=== PATIENT | male | born 1945 | race Caucasian/White ===

== ENCOUNTER 2017-01-12 08:00 | Inpatient (IN) | payer BC, OTHER ==
--- NOTE | 2017-01-11 10:38 | HP ---
[facility] - Chief Complaint Chief Complaint: right hip pain - Past Medical History Allergies/Adverse Reactions: Allergies Allergy/AdvReac Type Severity Reaction Status Date / Time No Known Allergies Allergy Verified 01/05/17 12:50 - Current Medications Current Medications: Home Medications Medication Instructions Recorded Ferrous Sulfate [Feosol] 325 mg PO DAILY 01/05/17 Tramadol HCl [Ultram] 50 mg PO BID PRN 01/05/17 [facility] Physical Exam - Physical Examination General Appearance: Well Nourished, Well Developed, Alert & Oriented x3 ENT: Clear Lung: Normal air movement Heart: Regular rate & rhythm Extremities: Other (right hip - +ttp, decr rom, nvi xrays show severe hip djd) Neurological: Intact, Alert, Oriented [facility] Impression/Plan - Impression/Plan Impression: right hip djd Operative Procedure: right matthew thr Date to be Performed: 01/12/17
[2017-01-12] MEDS ORDERED: TRANEXAMIC ACID 1000 MG/10 ML VIAL IVPUSH ONE (08:21)
[2017-01-12] MEDS ORDERED: CEFAZOLIN 2 GM in DEXTROSE 5%-WATER - 50 ML IVPB ONE (08:21)
[2017-01-12] MEDS ORDERED: oxyCODONE HCL 10 MG SUSTAINED ACTING TABLET PO ONE (08:21)
[2017-01-12] MEDS ORDERED: GABAPENTIN 300 MG CAPSULE (FP) PO ONE (08:21)
[2017-01-12] MEDS ORDERED: CELECOXIB 200 MG CAPSULE PO ONE (08:21)
[2017-01-12 08:47] VITALS: BMI 26.4
[2017-01-12] MEDS ORDERED: MIDAZOLAM HCL 2 MG/2 ML SINGLE DOSE VIAL ONE (09:03)
[2017-01-12] MEDS ORDERED: DEXAMETHASONE SOD PHOSPHATE/PF 10 MG/ML SDV ONE (09:03)
[2017-01-12] MEDS ORDERED: LIDOCAINE 1% P/F 10 MG/ML VIAL ONE (09:03)
[2017-01-12] MEDS ORDERED: BUPIVACAINE HCL/PF (5 MG/ML) 30 ML VIAL IJ ONE (09:03)
[2017-01-12] MEDS ORDERED: BUPIVACAINE HCL/PF 0.5% (5MG/ML) 10 ML VIAL ONE (10:21)
[2017-01-12] MEDS ORDERED: PROPOFOL 20 ML ONE ×2 (10:47)
[2017-01-12] MEDS ORDERED: VANCOMYCIN 1,000 MG VIAL (RESTRICTED TO ID ONLY) IVPB ONE (11:03)
[2017-01-12] MEDS ORDERED: MAGNESIUM HYDROX 2400MG/30ML ORAL SUSPENSION 30 ML CUP PO PRN (12:03)
[2017-01-12] MEDS ORDERED: ONDANSETRON 4 MG/2 ML VIAL IVPB PRN (12:03)
--- NOTE | 2017-01-12 12:05 | OP ---
Operative Note - Note: Operative Date: 01/12/17 (maxine) Pre-Operative Diagnosis: right hip djd Operation: right matthew thr Post-Operative Diagnosis: Same as Pre-op Surgeon: Melecio Solorzano Bed And Breakfast Cook: Eddy Villanueva Anesthesiologist/DIRECT CARE STAFFER: Donell Patino Anesthesia: Spinal, Local Specimens Removed: femoral head Estimated Blood Loss (mls): 150 Operative Report Dictated: Yes
[2017-01-12] MEDS ORDERED: oxyCODONE HCL 5 MG TABLET PO PRN (12:14)
[2017-01-12] MEDS ORDERED: LACTATED RINGERS SOLUTION 1,000 ML IV SCH (12:15)
[2017-01-12] MEDS ORDERED: MAG HYDROX/AL HYDROX/SIMETH 30 ML UNIT-DOSE CUP PO PRN (12:23)
[2017-01-12] MEDS ORDERED: ONDANSETRON 4 MG/2 ML VIAL IVPUSH PRN (12:24)
[2017-01-12] MEDS ORDERED: PROMETHAZINE HCL 25 MG/1 ML VIAL IVPUSH PRN (12:27)
--- NOTE | 2017-01-12 12:31 | SPEC ---
DATE OF OPERATION: 01/12/2017 PREOPERATIVE DIAGNOSIS: Degenerative joint disease, right hip. POSTOPERATIVE DIAGNOSIS: Degenerative joint disease, right hip. PROCEDURE: Right total hip replacement with robotic arm navigation assistance (MAKOplasty). SURGEON: Eri Solorzano MD TELEGRAPH PRINTER MECHANIC: JL Carpio ANESTHESIA: Spinal and regional. CLOSURE: ANITA components with a No. 56 Press-Fit Tritanium cup with an Accolade 2 No. 8 femoral stem and a +5 36-mm metallic head; No. 1 Vicryl, fascia; 0 and 2-0, subcutaneous; 3-0 Monocryl, subcuticular; skin glue for skin. ESTIMATED BLOOD LOSS: Negligible. COMPLICATIONS: None. CONDITION: To recovery room in stable condition. DESCRIPTION OF OPERATIVE PROCEDURE: The patient was taken to the operating room. Spinal anesthesia as well as regional was administered by the anesthesiologist. The IV Kefzol and TXA were administered prophylactically prior to the case. The patient was placed in the lateral decubitus position with all prominences well padded. An EKG pad was secured to the inferior pole of the patella for limb length calculations intraoperatively. The right hip area was prepped and draped in the usual sterile fashion. A 12.0- to 15.0-cm curved longitudinal incision over the posterolateral aspect of the greater trochanter was made. Hemostasis was achieved with Bovie cautery. Sharp dissection was carried down to the level of the fascia. The fascia was opened the entire length of the incision, spreading the gluteus carlie fibers in the direction of their origin. A Charnley retractor was placed in this layer, and care was taken to be far away from the sciatic nerve. The short external rotators were detached off the insertion of the greater trochanter and peeled off the capsule. A posterior capsulectomy was then performed. A checkpoint was malleted into the greater trochanter. Three small stab incisions were done on the iliac crest. Through these stab incisions, threaded guide pins were drilled into the iliac crest. These pins were fastened to the Navigation array. The checkpoint on the greater trochanter and the EKG pad on the inferior pole of the patella were used to measure preoperative limb length and offset. The hip was then dislocated. The hip was osteotomized at the appropriate level as directed by the preoperative template. Anterior and posterior retractors were placed around the acetabulum. Circumferential labrum was excised. A checkpoint was malleted into the acetabulum superiorly. The acetabulum was then registered with the Navigation device with multiple sites within the acetabulum and around the rim of the acetabulum. It was then confirmed popping the blue bubbles, confirming ideal position and confirmation of adequate registration with the Navigation device. Using a 48 reamer, which was decided preoperatively on the preoperative template, the robotic arm was brought into the field and was used to ream the acetabulum down to the appropriate depth with the appropriate orientation and inversion applied. After reaming, a good hemispherical bleeding surface was encountered in the acetabulum. A ANITA shell of the appropriate size was then malleted into place achieving excellent fit. Confirmation of the appropriate orientation and inversion was confirmed using the probe and assuring that the acetabular cup was placed in the ideal position as templated preoperatively. A real liner was then clipped into place with a 10-degree lip in the posterior-superior quadrant. Anterior and posterior osteophytes were removed using osteotome. Next, our attention was directed to the femur. The proximal femur was opened with a box chisel, rat-tail, anchovy and serial reamers. This was done until the appropriate reamer achieved good fit and fill of the proximal femur. A trial reduction with the appropriate neck and head, as again measured from our preoperative template, was performed. Limb lengths were confirmed both visually and using the Navigation device, again measuring the inferior pole of the patella and the checkpoint of the greater trochanter. This confirmed ideal position of the femoral component, lengths and offset. The trial components were removed. The real component was malleted into place. The head was cold-welded to the Charnley and the hip was reduced. Again, the hip was found to have equal limb lengths as described previously. The hip was also taken through a range of motion and found to be stable in external rotation and extension, was stable in marked flexion, stable in adduction and internal rotation, and had a positive hang test and negative telescoping. The hip was irrigated with copious amounts of irrigation. Hemostasis was achieved. Vancomycin powder was sprinkled into the joint. A 2nd dose of TXA was administered. The fascia was closed with No. 1 Vicryl interrupted suture, 0 and 2-0 for subcutaneous, and 3-0 Monocryl subcuticular for skin with skin glue. This was followed by an Aquacel dressing. The patient was flipped into the supine position. Bilateral SCDs and an abduction pillow were applied. X-rays showed good position of the components. The patient was awakened from anesthesia and transferred to the recovery room in stable condition. ERI SOLORZANO M.D. [id number]
[2017-01-12] MEDS: ACETAMINOPHEN 325 MG TABLET (FP) PO SCH ×3 (13:05→20:00)
[2017-01-12] MEDS: LACTATED RINGERS SOLUTION 1,000 ML IV SCH (13:17)
[2017-01-12] MEDS: CEFAZOLIN 2 GM/D5W 50 ML IVPB SCH (17:39)
[2017-01-12] MEDS: oxyCODONE HCL 5 MG TABLET PO PRN (18:20)
[2017-01-12] MEDS: SENNOSIDES/DOCUSATE COMBO (SENNA PLUS) TABLET (UD) PO SCH (21:08)
[2017-01-12] MEDS: oxyCODONE HCL 10 MG SUSTAINED ACTING TABLET PO SCH (21:15)
[2017-01-13] MEDS: CEFAZOLIN 2 GM/D5W 50 ML IVPB SCH (01:15)
[2017-01-13] MEDS: ACETAMINOPHEN 325 MG TABLET (FP) PO SCH ×4 (02:33→19:28)
[2017-01-13] MEDS: oxyCODONE HCL 5 MG TABLET PO PRN ×5 (02:34→23:51)
[2017-01-13] MEDS: ASPIRIN 325 MG TABLET PO SCH (07:53)
--- NOTE | 2017-01-13 08:02 | PN ---
Progress Note (short form) - Note Progress Note: Ortho Pt seen and examined s/p right matthew thr pod #1 Selected Entries 01/13/17 05:58 Temperature 98.3 F Pulse Rate 73 Respiratory 18 Rate Blood Pressure 136/70 Laboratory Tests 01/13/17 07:30 WBC Pending Hgb Pending Hct Pending Plt Count Pending dressing c/d/i, calf soft, nt nvi a/p PT hip precautions dvt ppx pain control d/c home tomorrow if stable
[2017-01-13 08:53] LABS: MCH 30.3 pg (25.7-33.7); MEAN CELL VOLUME 89.3 fl (80-96); MEAN PLT VOLUME 7.5 fl (7.5-11.1); PLATELET COUNT 262 K/MM3 (134-434); RDW 12.2 % (11.9-15.9); WHITE BLOOD COUNT 10.1 K/mm3 (4.0-10.8)
[2017-01-13] MEDS: FERROUS SO4 325 MG TABLET (FP) PO SCH (09:14)
[2017-01-13] MEDS: oxyCODONE HCL 10 MG SUSTAINED ACTING TABLET PO SCH ×2 (09:16→21:53)
[2017-01-13] MEDS: PANTOPRAZOLE 40 MG TABLET (FP) PO SCH (09:17)
--- NOTE | 2017-01-13 09:40 | PN ---
Progress Note (short form) - Note Progress Note: ANESTHESIOLOGY: 71 YO male POD #1 s/p R LILIAN. Patient doing well. OOB in walker on the way to PT. Pain well controlled. Tolerating PO. Encouraged IS.
[2017-01-13] MEDS ORDERED: PATIENT'S OWN MEDICATION (NON-FORMULARY) (Ferrous Sulfate [Feosol] 325 MG) PO SCH (10:00)
[2017-01-13] MEDS: SENNOSIDES/DOCUSATE COMBO (SENNA PLUS) TABLET (UD) PO SCH ×2 (10:13→21:53)
[2017-01-13] MEDS: MULTIVITAMINS (DAILY MVI) TABLET (FP) PO SCH (10:13)
[2017-01-13] MEDS: LACTATED RINGERS SOLUTION 1,000 ML IV SCH (12:58)
[2017-01-13 22:54] VITALS: BP 118/56; PULSE 87; TEMP 97.9
[2017-01-14] MEDS: ACETAMINOPHEN 325 MG TABLET (FP) PO SCH ×2 (01:25→08:05)
[2017-01-14] MEDS: oxyCODONE HCL 5 MG TABLET PO PRN ×2 (02:32→06:34)
[2017-01-14 07:53] LABS: MCH 30.5 pg (25.7-33.7); MEAN CELL VOLUME 89.8 fl (80-96); MEAN PLT VOLUME 7.1 fl (7.5-11.1); PLATELET COUNT 226 K/MM3 (134-434); RDW 12.7 % (11.9-15.9); WHITE BLOOD COUNT 8.6 K/mm3 (4.0-10.8)
[2017-01-14] MEDS: ASPIRIN 325 MG TABLET PO SCH (08:05)
--- NOTE | 2017-01-14 08:14 | PN ---
Progress Note (short form) - Note Progress Note: Ortho Pt seen and examined s/p right matthew thr pod #2 Selected Entries 01/13/17 22:53 Temperature 97.9 F Pulse Rate 87 Respiratory 18 Rate Blood Pressure 118/56 Laboratory Tests 01/14/17 07:30 WBC 8.6 Hgb 12.1 Hct 35.6 Plt Count 226 dressing c/d/i, calf soft, nt nvi a/p PT hip precautions dvt ppx pain control d/c home today f/u in 1 week
--- NOTE | 2017-01-14 08:15 | DS ---
Physical Examination Vital Signs: Vital Signs Temperature 97.9 F 01/13/17 22:53 Pulse Rate 87 01/13/17 22:53 Respiratory Rate 18 01/13/17 22:53 Blood Pressure 118/56 01/13/17 22:53 O2 Sat by Pulse Oximetry (%) 96 01/13/17 22:53 Labs: CBC, BMP 01/14/17 07:30 Discharge Summary Reason For Visit: OSTEOARTHRITIS Procedures: Principal: s/p right matthew thr Hospital Course: admitted for elective right matthew thr, uneventful post-op, stable for d/c Condition: Good - Instructions Diet, Activity, Other Instructions: Post-op Instructions-Total Hip Replacement Call the office for a follow-up appointment in 1 week - [phone] Aspirin 325mg daily for 6 weeks. Pain medication was sent into your pharmacy. Apply Graduated Compression Stockings (TEDs) to both lower extremities- remove daily for hygiene ONLY Apply Sequential Compression Device (SCDs) to both Lower extremities remove for PT and hygiene ONLY Apply cold packs to affected area for 15 minutes every 2 hours. Physical Therapist will come to your home for the first 5 days. You will be set up with outpatient PT at your first post-operative visit. Patient may ambulate as tolerated-encourage self care (at least every 2-3 hours while awake) with walker or cane Maintain Aquacel (waterproof) dressing to operative wound (will be removed by surgeon at first office visit) Shower with Aquacel dressing in place-if Aquacel integrity compromised, remove and apply dry sterile dressing and notify Orthopedist. DO NOT SHOWER unless Orthopedists approves without Aquacel dressing CONTACT THE OFFICE FOR ANY CHANGE IN YOUR CONDITION (for example-fever greater than 102 degrees,excessive bleeding from operative site, purulent drainage, severe swelling or pain) GO TO THE EMERGENCY ROOM IF THERE IS A MEDICAL EMERGENCY Hip Precautions: * Keep a rolled towel under affected heel while in bed or chair (to keep knee in extension) * Dependent upon approach: * Posterior - do not cross legs; do not sit on low chairs or toilets. * If you have any questions, please do not hesitate to call the office - . Referrals: Melecio Solorzano MD [Staff Physician] - Disposition: VNS/HOME HEALTH CARE - Home Medications Comprehensive Discharge Medication List: Ambulatory Orders Ferrous Sulfate [Feosol] 325 mg PO DAILY 01/05/17 Tramadol HCl [Ultram -] 50 mg PO BID PRN 01/05/17 Aspirin [ASA -] 325 mg PO DAILY@0800 tablet 01/12/17 Oxycodone HCl/Acetaminophen [Percocet 5-325 mg Tablet -] 1 - 2 tab PO Q6H #50 tab MDD 8 01/12/17
[2017-01-14] MEDS: PANTOPRAZOLE 40 MG TABLET (FP) PO SCH (09:17)
[2017-01-14] MEDS: FERROUS SO4 325 MG TABLET (FP) PO SCH (09:17)
[2017-01-14] MEDS: MULTIVITAMINS (DAILY MVI) TABLET (FP) PO SCH (09:17)
[2017-01-14] MEDS: SENNOSIDES/DOCUSATE COMBO (SENNA PLUS) TABLET (UD) PO SCH (09:18)
[2017-01-14] MEDS: oxyCODONE HCL 10 MG SUSTAINED ACTING TABLET PO SCH (09:18)
--- NOTE | 2017-01-19 10:34 | PATH ---
Surgical Pathology Report Patient Name: URMILA BEASLEY Med. Rec. #: [id number] /Age/Gender: 1945 (Age: 71) / M Account: [id number] Location: [facility] MED-SURG Taken: 01/12/2017 Received: 01/12/2017 Reported: 01/19/2017 Physicians: Melecio Solorzano M.D. Specimen(s) Received RIGHT FEMORAL HEAD Clinical History Osteoarthritis of right hip Final Diagnosis FEMORAL HEAD, RIGHT, TOTAL HIP PLACEMENT: DEGENERATIVE JOINT DISEASE. Electronically Signed Alycia Cobos M.D. Gross Description Received in formalin, labeled "right femoral head," is a 4.8 x 4.8 x 4.3 cm. femoral head with a 1.4 cm in length portion of femoral neck attached. The margin of resection is smooth. There is a 4.8 cm in greatest dimension area of eburnation present. The remaining articular surface is lai-yellow and diffusely granular. The underlying trabecular bone is yellow and hard. A exhibit display representative section is submitted in one cassette, following decalcification. 01/14/201701/14/2017
== END 2017-01-14 11:25 | disposition home health service (06) | DRG 470 ==
LOC: FM/S 08:12
PROVIDERS: ADMIT Orthopaedic Surgery; ATTEND Orthopaedic Surgery
PROC: 8E0W0CZ Robotic Assisted Procedure of Trunk Region, Open Approach (ICD-10-PCS; 2017-01-12)
PROC: 0SR90JA Replacement of Right Hip Joint with Synthetic Substitute, Uncemented, Open Approach (ICD-10-PCS; principal; 2017-01-12 10:21)
DX: M16.11 Unilateral primary osteoarthritis, right hip (principal)
CPT/HCPCS: 36415; 73502-TC-RT; 85027; 88304-TC; 88311-TC; 94010; 94760; 97116-GP; 97162-GP